=== PATIENT | female | born 1955 | race Caucasian/White ===

== ENCOUNTER 2019-04-23 | Emergency (ER) | payer SELFPAY ==
[~2019-04-23] MED LIST: KEPPRA500 M2 PO; POTASSIUM CHLO20 ME1 PO
[2019-04-23] MEDS ORDERED: AMOX/K CLAV875 M1 PO (17:31)
== END 2019-04-23 18:45 | disposition home or self-care (01) | DRG 159 ==
PROC: 0CQ1XZZ Repair Lower Lip, External Approach (ICD-10-PCS; principal; 2019-04-23)
DX: S01.551A Open bite of lip, initial encounter (principal); W54.0XXA Bitten by dog, initial encounter; Y93.K3 Activity, grooming and shearing an animal

== ENCOUNTER 2019-04-24 16:16 | Emergency (ER) | payer SELFPAY ==
[~2019-04-24] VITALS: Ht 152.4 cm; Wt 61.0 kg
[~2019-04-24 16:16] MED LIST changes: +AMOX/K CLAV875 M1 PO
[2019-04-24 16:34] VITALS: BP 145/80
== END 2019-04-24 16:44 | disposition left against medical advice (07) | DRG 951 ==
LOC: ED 16:16 → LWOBS 16:38 → ED 16:38 → LWOBS 16:44
DX: Z53.21 Procedure and treatment not carried out due to patient leaving prior to being seen by health care provider (principal)